=== PATIENT | female | born 1995 | race Caucasian/White ===

== ENCOUNTER 2018-08-30 21:17 | Emergency (ER) | payer BC, OTHER, MEDICAID ==
[2018-08-30] MEDS: LORAZEPAM 1 MG TAB PO (23:25)
[2018-08-31] MEDS: KETOROLAC 30 MG INJ IM (00:13)
== END 2018-08-31 01:30 | disposition home or self-care (01) ==
LOC: FTE 08-31 01:30
DX: S60.221A Contusion of right hand, initial encounter (principal); S60.222A Contusion of left hand, initial encounter; S30.0XXA Contusion of lower back and pelvis, initial encounter; S50.11XA Contusion of right forearm, initial encounter; S80.11XA Contusion of right lower leg, initial encounter; Y04.2XXA Assault by strike against or bumped into by another person, initial encounter
CPT/HCPCS: 73010; 73080-RT; 73130-RT; 73510; 73550; 81025; 96372; 99284-25